=== PATIENT | female | born 1930 | race Caucasian/White ===

== ENCOUNTER → 2016-10-16 | Outpatient (REF) | payer MEDICARE, OTHER ==
[~2016-10-16] MED LIST: /ADVA50050 INH; /ESOM40CA PO; ANTI25TA OR; ASPI81TA3 OR; BABY81CH PO; BISO10TA2 PO; CALCIUM LACTATE PO; CIPR500T19 OR; CIPR500T4 PO; COZA50TA18 PO; DETR2CAP PO; DETR4CAP PO; FLUTICASONE FUROATE; HYDR-727 PO; HYDR25TA6 PO; LEVALBUTEROL INH; MUCINEX PO; MULTIVIT; NASONEX; PREDPOW10; SING10TA31 PO; TYLE500T53 PO; VERAMYST; VIT D 2000 PO; VITA500T PO; VITAMIN B COMPLE1 PO; XOPE1.252 INH; XOPEAER INH; ZANT150T OR; ZEBE5TAB PO; ZETI10TA OR; ZETI10TA PO; ZOLO50TA PO
== END ==
LOC: M LAB REF 16:30
PROVIDERS: ATTEND Internal Medicine
DX: E21.0 Primary hyperparathyroidism (principal)

== ENCOUNTER → 2017-09-03 | Outpatient (CLI) | payer MEDICARE, OTHER ==
--- NOTE | 2017-09-03 16:23 | REP ---
Chest two views HISTORY: Asthma Comparison: 06/25/2011 The lungs are clear. The cardiac silhouette is enlarged. The pulmonary vasculature is normal in appearance. Degenerative change is present in the thoracic spine. IMPRESSION: Cardiomegaly. Signed by Frankie Banuelos MD 09/03/2017 04:15 P
== END ==
LOC: M SMT 16:03
PROVIDERS: ATTEND Internal Medicine Pulmonary Disease
DX: J45.909 Unspecified asthma, uncomplicated (principal)

== ENCOUNTER 2019-11-09 18:42 | Inpatient (IN) | payer MEDICARE, OTHER ==
[~2019-11-09] VITALS: Ht 162.6 cm; Wt 72.0 kg
[~2019-11-09 18:42] MED LIST changes: -/ADVA50050 INH; -/ESOM40CA PO; +ADVA1AER2 INH; +LANS30CA93; +NEXI1CAP3 PO; +RANI150T14; +SERT-138
[2019-11-09] MEDS ORDERED: MIRT1TAB (19:31)
[2019-11-09] MEDS ORDERED: BREO1INH (19:31)
[2019-11-09] MEDS ORDERED: BISO5TAB14 (19:31)
[2019-11-09] MEDS ORDERED: HYDR12.55 PO (19:31)
[2019-11-09] MEDS ORDERED: DIPH2.5T15 (19:31)
[2019-11-09] MEDS ORDERED: MIRT1TAB16 PO (19:31)
[2019-11-09] MEDS ORDERED: MONT10TA4 (19:31)
[2019-11-09] MEDS ORDERED: BUDE3CAP (19:31)
[2019-11-09] MEDS ORDERED: LOSA50TA88 (19:31)
[2019-11-09] MEDS ORDERED: IPRATROPIUM 0.5MG/ALBUTEROL 2.5MG INH SOL UD 3ML (DUONEB)(J7620) NEB ONE (21:00)
[2019-11-09] MEDS ORDERED: LOMOTIL 2.5MG/0.025MG TABLET PO SCH (21:00)
[2019-11-09 21:04] LABS: BASO % 0.3 % (0.0-1.0); EOS # 0.1 10^3/uL (0.0-0.5); EOS % 1.4 % (0.0-3.0); HEMATOCRIT 34.3 % (36.0-47.0); LYMPH # 0.6 10^3/uL (1.5-5.0); LYMPH % 9.7 % (24.0-44.0); MEAN CORPUSCULAR HEMOGLOBIN 29.3 pg (27.0-33.0); MEAN CORPUSCULAR HGB CONC 32.1 g/dl (32.0-36.5); MEAN CORPUSCULAR VOLUME 91.5 fl (80.0-96.0); MONO # 0.6 10^3/uL (0.0-0.8); MONO % 10.2 % (0.0-5.0); NEUTROPHILS # 4.5 10^3/uL (1.5-8.5); NEUTROPHILS % 78.1 % (36.0-66.0); PLATELET COUNT, AUTOMATED 197 10^3/uL (150-450); RED BLOOD COUNT 3.75 10^6/uL (4.00-5.40); WHITE BLOOD COUNT 5.8 10^3/uL (4.0-10.0)
[2019-11-09 21:10] LABS: BLOOD UREA NITROGEN 12 MG/DL (7-18); CALCIUM LEVEL 9.8 MG/DL (8.8-10.2); CARBON DIOXIDE LEVEL 28 MEQ/L (21-32); CHLORIDE LEVEL 107 MEQ/L (98-107); CREATININE FOR GFR 0.77 MG/DL (0.55-1.30); GLOMERULAR FILTRATION RATE > 60.0 (>32); GLUCOSE, FASTING 128 MG/DL (70-100); NT-PRO BNP 1615 PG/ML (<450); POTASSIUM SERUM 3.3 MEQ/L (3.5-5.1); SODIUM LEVEL 142 MEQ/L (136-145)
[2019-11-09 21:20] LABS: ABG BASE EXCESS 2.3 (-2.0-2.0); ABG HCO3 25.9 MEQ/L (22.0-26.0); ABG O2 SATURATION 96.3 % (95.0-99.0); ABG PARTIAL PRESSURE CO2 36.6 mmHg (35.0-45.0); ABG PARTIAL PRESSURE O2 78.3 mmHg (75.0-100.0); ABG STANDARD HCO3 26.5 MEQ/L (22.0-26.0); ABG pH (ARTERIAL) 7.467 UNITS (7.350-7.450)
[2019-11-09 21:51] LABS: APPEARANCE, URINE CLOUDY (CLEAR); BACTERIA, URINE AUTO 1+ (NEGATIVE); BILIRUBIN, URINE AUTO NEGATIVE (NEGATIVE); BLOOD, URINE BLOOD 2+ (NEGATIVE); COLOR, URINE YELLOW (YELLOW); GLUCOSE, URINE (UA) AUTO NEGATIVE (NEGATIVE); KETONE, URINE AUTO NEGATIVE (NEGATIVE); LEUKOCYTE ESTERASE, URINE AUTO 3+ (NEGATIVE); MUCUS, URINE SMALL (NEGATIVE); NITRITE, URINE AUTO NEGATIVE (NEGATIVE); PROTEIN, URINE AUTO NEGATIVE (NEGATIVE); RBC, URINE AUTO 14 /HPF (0-3); SPECIFIC GRAVITY URINE AUTO 1.008 (1.002-1.035); SQUAMOUS EPITHELIAL CELL UR AU 2 /HPF (0-6); UROBILINOGEN, URINE AUTO 0.2 mg/dL (0.0-2.0); WBC, URINE AUTO TNTC /HPF (0-3)
[2019-11-09 22:16] LABS: INFLUENZA A AMPLIFICATION NEGATIVE (NEGATIVE); INFLUENZA B AMPLIFICATION NEGATIVE (NEGATIVE)
[2019-11-09] MEDS ORDERED: POTASSIUM CHLORIDE 10 MEQ SR TABLET PO ONE (23:15)
[2019-11-09] MEDS ORDERED: cefTRIAXone SOD 1 GM in D5W MINI-BAG PLUS 50 ML IV ONE (23:15)
[2019-11-09] MEDS ORDERED: FUROSEMIDE 40 MG/4 ML VIAL (J1940) IV ONE (23:15)
[2019-11-10] MEDS ORDERED: BREO1INH INH (00:18)
[2019-11-10] MEDS ORDERED: LOMO2.5T PO (00:18)
[2019-11-10] MEDS ORDERED: LOSA50TA88 PO (00:18)
[2019-11-10] MEDS ORDERED: ASPI-161 PO (00:18)
[2019-11-10] MEDS ORDERED: LEVA1.2525 INH (00:18)
[2019-11-10] MEDS ORDERED: SERT-138 PO (00:18)
[2019-11-10] MEDS ORDERED: BUDE3CAP PO (00:18)
[2019-11-10] MEDS ORDERED: HYDR12.55 PO (00:18)
[2019-11-10] MEDS ORDERED: LANS30CA PO (00:18)
[2019-11-10] MEDS ORDERED: VITATAB73 PO (00:18)
[2019-11-10] MEDS ORDERED: ASCO500T PO (00:18)
[2019-11-10] MEDS ORDERED: D32000TA PO (00:18)
[2019-11-10] MEDS ORDERED: REME15TA PO (00:18)
[2019-11-10] MEDS ORDERED: OYST1TAB PO (00:18)
[2019-11-10] MEDS ORDERED: META28.32 PO (00:18)
[2019-11-10] MEDS ORDERED: BISO5TAB14 PO (00:18)
[2019-11-10] MEDS ORDERED: VITMTA PO (00:18)
[2019-11-10] MEDS ORDERED: MONT10TA4 PO (00:18)
[2019-11-10] MEDS ORDERED: LEVALBUTEROL 1.25 MG/0.5 ML CONCENTRATE NEB INH PRN (00:30)
--- NOTE | 2019-11-10 00:42 | HPEPDOC ---
General Date of Admission Nov 09, 2019 at 23:20 Date of Service: Nov 09, 2019 Primary Care Physician: Jr Tovar Collins Attending Physician: MERT SAAB MD Chief Complaint The patient is a 89-year-old female admitted with a reason for visit of Dyspnea. Source: Patient Exam Limitations: No limitations Timing/Duration: 4-6 hours Severity: Moderate History of Present Illness Maegan is an 89-year-old female who presented to the emergency department complaining of sudden onset generalized weakness and shortness of breath. She says that she had been feeling weak for several days and this afternoon felt short of breath after walking up the second flight of stairs at her house. She went downstairs, and sat down to eat a bowl of hot soup, when she started fee ling shaky. She says she felt like she was going to pass out, she felt nervous, and felt that her heart was racing. She continues to feel quite weak, and does not think that she is strong enough to go home. 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 The last time she saw her primary care provider was on 10/19/2019, when he increased her Lomotil for diarrhea to 4 times daily. Despite this, she continues to have 2-3 bowel movements daily. She finds that taking Metamucil will help keep her bowel movements formed. She says that she has lost about 15 pounds over the last 6 months, unintentionally, as her diarrhea is quite severe. She denies any leg swelling, and chronically sleeps propped up at night with 3 pillows secondary to severe gastric reflux from an hiatal hernia. Home Medications Scheduled Ascorbic Acid (Ascorbic Acid) 500 Mg Tablet, 500 MG PO BID, (Reported) Aspirin (Aspirin EC) 81 Mg Tablet.dr, 81 MG PO DAILY, (Reported) Bisoprolol Fumarate (Bisoprolol Fumarate) 5 Mg Tablet, 5 MG PO QHS, (Reported) Budesonide (Budesonide EC) 3 Mg Capdr...er, 3 MG PO DAILY, (Reported) Calcium Carbonate (Calcium) 500 Mg Tablet, 1,000 MG PO BID, (Reported) Cholecalciferol (Vitamin D3) (Vitamin D3) 2,000 Unit Tablet, 2,000 UNIT PO DAILY, (Reported) Diphenoxylate HCl/Atropine (Lomotil 2.5-0.025 mg Tablet) 1 Each Tablet, 1 TAB PO QID, (Reported) Fluticasone/Vilanterol (Breo Ellipta 100-25 Mcg INH) 1 Each Blst.w.dev, 1 PUFF INH DAILY, (Reported) Hydrochlorothiazide (Hydrochlorothiazide) 12.5 Mg Tablet, 12.5 MG PO DAILY, (Reported) Lansoprazole (Lansoprazole) 30 Mg Capsule.dr, 30 MG PO BID, (Reported) Losartan Potassium (Losartan Potassium) 50 Mg Tablet, 50 MG PO DAILY, (Reported) Mirtazapine (Remeron) 15 Mg Tablet, 7.5 MG PO QHS, (Reported) Montelukast Sodium (Montelukast Sodium) 10 Mg Tablet, 10 MG PO QHS, (Reported) Multivitamins (Thera M Plus Tablet) 1 Each Tablet, 1 TAB PO DAILY, (Reported) Psyllium Husk (with Sugar) (Metamucil Powder) 575 Gm Powder, 1 PKT PO BID, (Reported) Sertraline HCl (Sertraline HCl) 100 Mg Tablet, 100 MG PO QHS, (Reported) Vitamin B Complex (Vitamin B Complex) 1 Each Tablet, 1 TAB PO BID, (Reported) Scheduled PRN Levalbuterol HCl (Levalbuterol HCl) 1.25 Mg/3 Ml Vial.neb, 1.25 MG INH QID PRN for SHORTNESS OF BREATH, (Reported) Allergies Coded Allergies: No Known Allergies (Verified , 11/09/19) Past Medical History Medical History Asthma Hypertension COPD GERD secondary to hiatal hernia Depression/anxiety Chronic vertigo Diet controlled diabetes Hypothyroidism Uterine cancer status post hysterectomy and radiation History of left pleural effusion and pericardial effusion related to coxsackie virus 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 Surgical History Tonsillectomy Vaginal hysterectomy in 1996 with subsequent radiation therapy for uterine cancer (still has fallopian tubes and ovaries) Left knee arthroscopically Cholecystectomy Cataract surgery and retinal detachment surgery Family History Significant Family History: No pertinent family hx Social History * Smoker: Denies Alcohol: Denies Drugs: denies Recent Travel/Sick Contacts: Denies: Recent travel A-FIB/[facility] A-FIB History Current/History of A-Fib/PAF?: No Review of Systems Constitutional: Denies: Chills, Fever, Night Sweats, Weakness Eyes: Denies: Vision change, Redness ENT: Denies: Head Aches, Dysphagia, Sinus Congestion, Post Nasal Drip, Sore Throat, Epistaxis Skin: Reports: Bruising (from aspirin); Denies: Rash, Lesions, Jaundice Pulmonary: Reports: Dyspnea; Denies: Cough, Pleuritic Chest Pain Cardiovascular: Denies: Chest Pain, Palpitations, Orthopnea, Paroxysmal Noc. Dyspnea, Edema Gastrointestinal: Reports: Diarrhea; Denies: Nausea, Vomiting, Abdominal Pain, Constipation Genitourinary: Denies: Dysuria, Frequency, Incontinence Hematologic: Reports: Bruising (from aspirin); Denies: Bleeding Excessively Endocrine: Denies: Polydipsia, Polyphagia, Polyuria Musculoskeletal: Denies: Neck Pain, Back Pain Neurological: Reports: Weakness; Denies: Numbness Psych: Reports: Anxiety Physical Examination General Exam: Positive: Alert, Cooperative, No Acute Distress Eye Exam: Positive: PERRLA (wears glasses) ENT Exam: Positive: Atraumatic, Mucous membr. moist/pink Neck Exam: Positive: Supple; Negative: JVD, thyromegaly Chest Exam: Positive: Clear to auscultation, Normal air movement Heart Exam: Positive: Rate Normal, Regular Rhythm, Normal S1, Normal S2; Negative: Gallops, Murmurs, Rubs Telemetry: Positive: No significant arrhythmia Abdomen Exam: Positive: BS Hyperactive Extremity Exam: Positive: Normal pulses; Negative: Clubbing, Cyanosis, Edema Skin Exam: Negative: Nl turgor and temperature (decreased turgor) Neuro Exam: Positive: Normal Speech, Strength at 5/5 X4 ext, Normal Tone, Sensation Intact Psych Exam: Positive: Mental status NL Vital Signs Vital Signs Date Time Temp Pulse Resp B/P (MAP) Pulse Ox O2 Delivery O2 Flow Rate FiO2 11/09/19 23:31 98.2 80 18 144/69 (94) 100 Nasal Cannula 1.0 11/09/19 19:18 93 Laboratory Data Labs 24H Laboratory Tests 2 11/09/19 19:45: Immature Granulocyte % (Auto) 0.3, Neutrophils (%) (Auto) 78.1H, Lymphocytes (%) (Auto) 9.7L, Monocytes (%) (Auto) 10.2H, Eosinophils (%) (Auto) 1.4, Basophils (%) (Auto) 0.3, Neutrophils # (Auto) 4.5, Lymphocytes # (Auto) 0.6L, Monocytes # (Auto) 0.6, Eosinophils # (Auto) 0.1, Basophils # (Auto) 0.0, Nucleated Red Blood Cells % (auto) 0.0, Anion Gap 7L, Glomerular Filtration Rate > 60.0, Calcium Level 9.8, YW-Aok-E-Type Natriuretic Peptide 1615H 11/09/19 21:04: Blood Gas Bicarbonate Standard 26.5H, Arterial Blood pH 7.467H, Arterial Blood Partial Pressure CO2 36.6, Arterial Blood Partial Pressure O2 78.3, Arterial Blood Total CO2 27.0, Arterial Blood HCO3 25.9, Arterial Blood Base Excess 2.3H, Arterial Blood Oxygen Saturation 96.3 11/09/19 21:29: Lactic Acid Level 0.9, Influenza Type A (RT-PCR) NEGATIVE, Influenza Type B (RT- PCR) NEGATIVE 11/09/19 21:30: Urine Color YELLOW, Urine Appearance CLOUDYH, Urine pH 6.0, Urine Specific [place] 1.008, Urine Protein NEGATIVE, Urine Glucose (Auto)(UA) NEGATIVE, Urine Ketones (Auto) NEGATIVE, Urine Blood 2+H, Urine Nitrite NEGATIVE, Urine Bilirubin NEGATIVE, Urine Urobilinogen 0.2, Urine Leukocyte Esterase (Auto) 3+H, Urine WBC (Auto) TNTCH, Urine RBC (Auto) 14H, Urine Hyaline Casts (Auto) 2, Urine Bacteria (Auto) 1+H, Urine Squamous Epithelial Cells 2, Urine Mucus (Auto) SMALL, Urine Sperm (Auto) CBC/BMP Laboratory Tests 11/09/19 19:45 Microbiology Microbiology 11/09/19 Blood Culture, Received Pending Assessment/Plan 1. Dehydration secondary to chronic diarrhea. IVF at 100 cc/hr. 2. Hypokalemia secondary to chronic diarrhea. Replete potassium, recheck in the morning. 3. Weakness, most likely secondary to chronic diarrhea. IV fluids and potassium repletion as above. Physical therapy evaluation. 4. Elevated proBNP. Echocardiogram to rule out heart failure. Clinically no signs of heart failure on exam. 5. Hypertension, continue bisoprolol, hydrochlorothiazide, and losartan 6. Anxiety/depression. Continue home mirtazapine and Zoloft 7. Asthma/COPD. Continue with levalbuterol nebulizers as needed, home budesonide, and Singulair. Is on Breo Ellipta at home 8. Chronic diarrhea. Continue home Lomotil, high-fiber diet 9. DVT prophylaxis. 10. Patient wishes to be DNR/DNI Disposition: Inpatient as we expect more than 2 nights Plan / VTE VTE Prophylaxis Ordered?: Yes (lovenox) Plan Therapy: PT Advanced Directives: Do Not Resuscitate (DNR), Do Not Intubate (DNI) GME ATTESTATION GME ATTESTATION My faculty preceptor for this patient encounter was physically present during the encounter and was fully available. All aspects of the patient interview, examination, medical decision making process, and medical care plan development were reviewed and approved by the faculty preceptor. The faculty preceptor is aware and concurs with the plan as stated in the body of this note and will attest to such by his/her cosignature. ATTENDING NOTE I examined Ms. Pryor on November 10 at 1205 AM This is an 89 yr old F w a PMH Of HTN, Asthma, Chronic O2 dep and hx of uterine cancer who developed chronic diarrhea after radation tx who presented with the cheif c/o of feeling weak, dizzy and short of breath. 1. Dyspnea of unclear cause Per pt symptoms not typical of her acute asthma but improved a bit after she received both lasix and nebs. Her BNP was elevated and her xrc showed congestion. Her previous Echo didn't show evidence of CHF Her PERC rule score = 0 which r/o PE Her ABG was unremarkable. 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
[2019-11-10] MEDS: LOMOTIL 2.5MG/0.025MG TABLET PO SCH ×5 (00:45→20:55)
[2019-11-10] MEDS ORDERED: KCL 20MEQ in NS 1000ML 1,000 ML IV SCH (00:45)
[2019-11-10 01:01] VITALS: BP 146/87
[2019-11-10 01:08] LABS: TROPONIN I < 0.02 NG/ML (< 0.10)
[2019-11-10] MEDS: METAMUCIL (PSYLLIUM) PACKET PO SCH ×3 (01:28→20:55)
[2019-11-10] MEDS: bisoproloL fumarate 5 MG TAB PO SCH ×2 (01:29→20:55)
[2019-11-10] MEDS: ASCORBIC ACID 500 MG TAB PO SCH ×3 (01:29→20:55)
[2019-11-10] MEDS: OYSTER SHELL CALCIUM 500 MG TAB PO SCH ×3 (01:30→20:55)
[2019-11-10] MEDS: SERTRALINE 100 MG TAB PO SCH ×2 (01:30→20:55)
[2019-11-10] MEDS: MONTELUKAST 10 MG TAB PO SCH ×2 (01:30→20:55)
[2019-11-10] MEDS: PANTOPRAZOLE 40MG TAB (PROTONIX) PO SCH ×3 (01:30→17:03)
[2019-11-10] MEDS: MIRTAZAPINE 7.5MG PER 1/2 TABLET PO SCH ×2 (02:13→20:55)
[2019-11-10 02:52] LABS: MAGNESIUM LEVEL 1.6 MG/DL (1.8-2.4); TROPONIN I < 0.02 NG/ML (< 0.10)
[2019-11-10] MEDS ORDERED: MAGNESIUM OXIDE 400 MG TAB (MAG-OX) PO ONE ×2 (03:15→05:15)
[2019-11-10 06:00] VITALS: BP 115/74
--- NOTE | 2019-11-10 07:51 | REP ---
Clinical: Dyspnea. Technique: PA and cross-table lateral. Findings: Mediastinum and cardiac silhouette are within normal limits and stable. Lung kyle demonstrate diffuse chronic interstitial changes. Mild bibasilar atelectasis (left greater than right) cannot be excluded. No obvious effusion. No pneumothorax. Skeletal structures are intact. Impression: Chronic changes with superimposed basilar atelectasis suspected. Electronically Signed by Everton Issa MD 11/10/2019 07:43 A
--- NOTE | 2019-11-10 11:17 | IPNPDOC ---
Text Note Date of Service The patient was seen on 11/10/19. NOTE Subjective: Patient is an 89-year-old female presented to the hospital last e vening with weakness. 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 Patient received radiation treatment for uterine cancer after hysterectomy. Patient says last night she was having worsening of her diarrhea and was having difficulty standing. She tried to walk down stairs and felt very weak so she called an ambulance to bring her into the hospital. Patient was also experiencing shortness of breath at that time. Patient received 1 nebulizer treatment in the ambulance and said this made her feel better. Patient received 1 dose of Lasix in the emergency room which also made her feel better. This morning, patient says she is feeling okay but still feels very weak. She has not had any diarrhea since being in the hospital. Overnight, she did not get much sleep as she was moving from the emergency room to the hospital floor so she feels very tired this morning. Patient does not have any other complaints. Review of systems General: Patient denies fevers Cardiovascular: Patient denies chest pain Respiratory: Patient denies shortness of breath, cough GI: Patient denies abdominal pain, nausea, vomiting, diarrhea Extremities: Patient denies swelling or pain in extremities Objective: Vitals: (see below) General: Alert and oriented patient who was sitting in bed when I walked him. Patient was in no acute distress. HEENT: Normocephalic, atraumatic, moist mucous membranes. Neck: Jugular venous distention 3-4 cm above the sternal angle Cardiac: Regular rate and rhythm, no murmurs, normal S1, normal S2 Pulm: Fine crackles in the bases bilaterally. Abd: Nondistended, nontender to palpation, normal bowel sounds Ext: Trace pitting edema bilaterally in the lower extremities Labs (see below) Images: A chest x-ray performed on 11/09/2019 was reported as chronic changes with superimposed basilar atelectasis suspected. Assessment: Patient is an 89-year-old female who presented with weakness which is thought to be secondary to dehydration secondary to diarrhea. Plan 1. Dehydration secondary to chronic diarrhea. Patient had been giving IV fluids at 100 mL/h. Patient received about 600 mL of fluid before this was stopped secondary to fluid overload. We will continue to see how the patient is doing throughout the day. If the patient becomes more short of breath throughout the day, 1 dose of IV Lasix will be given. 2. Hypokalemia, secondary to chronic diarrhea. Patient had repletion of her potassium. She is due for a basic metabolic profile at noon. 3. Weakness, most likely secondary to chronic diarrhea. Patient had fluid resuscitation and she'll be working with physical therapy. 4. Elevated proBNP. This is been repeated at noon as well, echocardiogram has been ordered and is pending. - s/p Furosemide 40 IV in the ER; current fluid balanced recorded at + 1010 cc 5. Hypertension. Continue bisoprolol hydrochlorothiazide and losartan. 6. Anxiety/depression. Continue with home medications. 7. Asthma/COPD. Continue with Levalbuterol nebulizers as needed, home budesonide, and Singulair. 8. Chronic diarrhea. Continue home Lomotil and Metamucil DVT prophy: Lovenox Dispo: Pending clinical improvement of the patient's weakness and physical therapy clearance. VS,Fishbone, I+O VS, Fishbone, I+O Laboratory Tests 11/09/19 19:45 Vital Signs Date Time Temp Pulse Resp B/P (MAP) Pulse Ox O2 Delivery O2 Flow Rate FiO2 11/10/19 06:00 98.6 72 20 115/74 (88) 94 Room Air 11/09/19 23:31 1.0 11/09/19 19:18 93 I&O- Last 24 Hours up to 6 AM 11/10/19 05:59 Intake Total 400 ml Output Total 300 ml Balance 100 ml GME ATTESTATION GME ATTESTATION My faculty preceptor for this patient encounter was physically present during the encounter and was fully available. All aspects of the patient interview, examination, medical decision making process, and medical care plan development were reviewed and approved by the faculty preceptor. The faculty preceptor is aware and concurs with the plan as stated in the body of this note and will attest to such by his/her cosignature. ATTENDING NOTE I, Reji Cody, have independently examined this patient and performed my own physical exam, as well as reviewed the documentation and edited where necessary. I have discussed in detail with the resident / student the findings and plan of treatment as documented by the resident / student and edited their note. I agree with their findings and treatment plan and have edited their documentation. I will continue to follow the patient during this hospital stay. GRAYSON PURI DO Nov 10, 2019 11:17 REJI CODY MD Nov 10, 2019 14:45
[2019-11-10] MEDS: ASPIRIN 81 MG ENTERIC TAB PO SCH (11:23)
[2019-11-10] MEDS: MULTIVITAMINS/MINERALS THERAP 1 TAB PO SCH (11:23)
[2019-11-10] MEDS: BUDESONIDE EC 3 MG CAP (ENTOCORT EC) PO SCH (11:23)
[2019-11-10] MEDS: VITAMIN D 1,000 INTERNATIONAL UNITS TABLET PO SCH (11:23)
[2019-11-10] MEDS: hydroCHLOROthiazide 12.5 MG CAPSULE PO SCH (11:23)
[2019-11-10] MEDS: ENOXAPARIN 30 MG/0.3 ML SYR (J1650) SC SCH (11:24)
[2019-11-10] MEDS: LOSARTAN 50 MG TAB PO SCH (11:24)
[2019-11-10 12:33] LABS: HEMATOCRIT 36.7 % (36.0-47.0); HEMOGLOBIN 11.4 g/dl (12.0-15.5); MEAN CORPUSCULAR HEMOGLOBIN 28.6 pg (27.0-33.0); MEAN CORPUSCULAR HGB CONC 31.1 g/dl (32.0-36.5); MEAN CORPUSCULAR VOLUME 92.2 fl (80.0-96.0); PLATELET COUNT, AUTOMATED 198 10^3/uL (150-450); RED BLOOD COUNT 3.98 10^6/uL (4.00-5.40); WHITE BLOOD COUNT 6.4 10^3/uL (4.0-10.0)
[2019-11-10 12:59] LABS: ALBUMIN 3.4 GM/DL (3.2-5.2); ALT/SGPT 18 U/L (12-78); BILIRUBIN,TOTAL 0.5 MG/DL (0.2-1.0); BLOOD UREA NITROGEN 12 MG/DL (7-18); CARBON DIOXIDE LEVEL 28 MEQ/L (21-32); CHLORIDE LEVEL 106 MEQ/L (98-107); CREATININE FOR GFR 0.66 MG/DL (0.55-1.30); GLOMERULAR FILTRATION RATE > 60.0 (>32); GLUCOSE, FASTING 100 MG/DL (70-100); MAGNESIUM LEVEL 1.8 MG/DL (1.8-2.4); NT-PRO BNP 1585 PG/ML (<450); POTASSIUM SERUM 3.8 MEQ/L (3.5-5.1); SODIUM LEVEL 141 MEQ/L (136-145); TOTAL PROTEIN 6.1 GM/DL (6.4-8.2)
[2019-11-10] MEDS: LEVALBUTEROL 1.25 MG/0.5 ML CONCENTRATE NEB INH SCH (20:10)
[2019-11-10 22:00] VITALS: BP 100/69
[2019-11-11] MEDS ORDERED: HumuLIN R (REGULAR) INSULIN (NovoLIN R) **100U/ML** PER UNIT IV STA (01:37)
[2019-11-11] MEDS ORDERED: DEXTROSE 50% 50 ML SYRINGE IV STA (01:37)
[2019-11-11] MEDS ORDERED: CALCIUM GLUCONATE 1,000 MG in D5W MINI-BAG PLUS 100 ML IV ONE (01:45)
[2019-11-11 06:00] VITALS: BP 115/60
[2019-11-11 06:23] LABS: HEMATOCRIT 33.9 % (36.0-47.0); HEMOGLOBIN 10.8 g/dl (12.0-15.5); MEAN CORPUSCULAR HEMOGLOBIN 29.4 pg (27.0-33.0); MEAN CORPUSCULAR HGB CONC 31.9 g/dl (32.0-36.5); MEAN CORPUSCULAR VOLUME 92.4 fl (80.0-96.0); PLATELET COUNT, AUTOMATED 173 10^3/uL (150-450); RED BLOOD COUNT 3.67 10^6/uL (4.00-5.40)
[2019-11-11 06:50] LABS: BLOOD UREA NITROGEN 9 MG/DL (7-18); CALCIUM LEVEL 9.7 MG/DL (8.8-10.2); CARBON DIOXIDE LEVEL 29 MEQ/L (21-32); CHLORIDE LEVEL 105 MEQ/L (98-107); CREATININE FOR GFR 0.78 MG/DL (0.55-1.30); GLOMERULAR FILTRATION RATE > 60.0 (>32); GLUCOSE, FASTING 107 MG/DL (70-100); POTASSIUM SERUM 3.4 MEQ/L (3.5-5.1); SODIUM LEVEL 141 MEQ/L (136-145)
[2019-11-11] MEDS: LEVALBUTEROL 1.25 MG/0.5 ML CONCENTRATE NEB INH SCH ×2 (06:56→11:47)
[2019-11-11] MEDS: PANTOPRAZOLE 40MG TAB (PROTONIX) PO SCH (07:08)
[2019-11-11] MEDS ORDERED: POTASSIUM CHLORIDE 10 MEQ SR TABLET PO ONE (07:15)
[2019-11-11] MEDS: ASPIRIN 81 MG ENTERIC TAB PO SCH (08:25)
[2019-11-11] MEDS: BUDESONIDE EC 3 MG CAP (ENTOCORT EC) PO SCH (08:25)
[2019-11-11] MEDS: VITAMIN D 1,000 INTERNATIONAL UNITS TABLET PO SCH (08:25)
[2019-11-11] MEDS: OYSTER SHELL CALCIUM 500 MG TAB PO SCH (08:28)
[2019-11-11] MEDS: METAMUCIL (PSYLLIUM) PACKET PO SCH (08:28)
[2019-11-11] MEDS: MULTIVITAMINS/MINERALS THERAP 1 TAB PO SCH (08:28)
[2019-11-11] MEDS: ASCORBIC ACID 500 MG TAB PO SCH (08:28)
[2019-11-11] MEDS: LOMOTIL 2.5MG/0.025MG TABLET PO SCH ×2 (08:47→13:00)
[2019-11-11] MEDS: ENOXAPARIN 30 MG/0.3 ML SYR (J1650) SC SCH (08:47)
[2019-11-11 09:00] VITALS: BP 98/62
[2019-11-11] MEDS: LOSARTAN 50 MG TAB PO SCH (09:00)
[2019-11-11] MEDS: hydroCHLOROthiazide 12.5 MG CAPSULE PO SCH (09:00)
--- NOTE | 2019-11-11 10:45 | IPNPDOC ---
Text Note Date of Service The patient was seen on 11/11/19. NOTE Subjective: Patient is an 89-year-old female who presented to the hospital with weakness and chronic diarrhea that is worsening. Patient says that she did not have any episodes of diarrhea yesterday and had a normal bowel movement. Patient says she is feeling stronger today however, she still needs work with physical therapy. Patient is feeling well today. There was no acute events overnight. Review of systems General: Patient denies fevers Cardiovascular: Patient denies chest pain Respiratory: Patient denies shortness of breath, cough GI: Patient denies abdominal pain, nausea, vomiting, diarrhea Extremities: Patient denies swelling or pain in extremities Objective: Vitals: (see below) General: Alert and oriented elderly female who is sitting in the bed when I wa lked into the room. Patient was in no acute distress. HEENT: Normocephalic, atraumatic, moist mucous membranes. Neck: No lymphadenopathy or thyromegaly Cardiac: Regular rate and rhythm, no murmurs, normal S1, normal S2 Pulm: Clear to auscultation bilaterally. No wheezes, rhonchi, rales Abd: Nondistended, nontender to palpation, normal bowel sounds Ext: No edema bilateral lower extremities Labs (see below) Images: Imaging has been performed. Assessment: This is an 89-year-old female presented to the hospital with weakness which started be secondary to dehydration secondary to worsening of her chronic diarrhea. She is not had any diarrhea since being in the hospital and feels better. Plan 1. Dehydration secondary to chronic diarrhea. Patient's IV fluids were stopped yesterday. Patient is on strict intake and output and appears much more euvolemic today. Patient's been worked with physical therapy or will require at least 1-2 more days. Patient's chronic diarrhea has improved with Lomotil. 2. Hypokalemia, secondary to chronic diarrhea. Patient has had repletion of potassium. We will continue to monitor. 3. Weakness secondary to chronic diarrhea. Patient has been fluid resuscitated and is currently euvolemic. 4. Elevated pro BNP. This remains elevated. Patient received a dose of furosemide 40 mg IV in the emergency room. Patient is net +2210 mL. 5. Hypertension. Patient is on bisoprolol hydrochlorothiazide and losartan. Patient's blood pressure has been running on the low side so her hydrochlorothiazide has been discontinued. 6. Anxiety/depression. Continue with home medications. 7. Asthma/COPD. Continue with levalbuterol nebulizers as needed, home budesonide, and Singulair. 8. Chronic diarrhea. Continue with home Lomotil and Metamucil. DVT prophy: Lovenox Dispo: Patient passed physical therapy clearance today and will be discharged. See discharge summary dated 11/11/2019. VS,Fishbone, I+O VS, Fishbone, I+O Laboratory Tests 11/10/19 12:12 11/11/19 06:06 Vital Signs Date Time Temp Pulse Resp B/P (MAP) Pulse Ox O2 Delivery O2 Flow Rate FiO2 11/11/19 09:00 98/62 11/11/19 06:00 98.3 70 17 92 Room Air 11/09/19 23:31 1.0 11/09/19 19:18 93 I&O- Last 24 Hours up to 6 AM 11/11/19 06:00 Intake Total 2690 ml Output Total 800 ml Balance 1890 ml GRAYSON PURI DO Nov 11, 2019 10:45
--- NOTE | 2019-11-11 10:53 | ECHO ---
DATE OF PROCEDURE: 11/10/2019 HEIGHT: 64 inches. WEIGHT: 156 pounds. BODY SURFACE AREA: 1.77 meters squared. ROOM: Inpatient [address] [place] [address], room 4213. REFERRING PHYSICIAN: Dr. Kathryn Mon. INDICATION: Dyspnea. MEASUREMENTS: 2D Measurements: RV - 4.2 cm LV - 4.7 cm Septum - 1.4 cm Posterior wall - 1.4 cm Aortic root - 3.1 cm LA - 4.2 cm LVEF - 75 -80%. Doppler Measurements: AV - 1.75 meters per second LVOT - 1.12 meters per second LVOT diameter - 1.7 cm MV - E 104, A - 55, E/A ratio 1.9 Early mitral deceleration time - 180 milliseconds E prime medial 5, A prime medial - 6.5, E prime lateral - 10. Average E/E prim ration 13.9/PCWP - 19 mmHg PV - 0.75 meters per second Pulmonary artery acceleration time 80 milliseconds RVSP - 49-54 mmHg IVC - 2.1 cm COMMENTS: Normal sinus rhythm without intraventricular conduction disturbance. M-mode and two dimensional echocardiography was performed with pulsed, continuous wave, color flow and tissue Doppler studies. Moderate concentric left ventricular hypertrophy with hyperkinetic wall motion. Mildly dilated left atrium with grade 2 LV diastolic dysfunction and at least mildly elevated estimated mean left atrial pressure. Mildly dilated right heart chambers with normal wall motion and Doppler evidence of moderately severe pulmonary hypertension. Mildly dilated IVC with reduced respiratory collapse in keeping with elevated central venous pressures/right heart failure. Mild aortic valvular sclerosis without functional abnormality. Mild degenerative changes of the mitral valvular apparatus without in-flow tract obstruction but mild insufficiency. Normal appearing tricuspid valve with moderate insufficiency. No apparent intracardiac mass or pericardial effusion.
--- NOTE | 2019-11-11 13:25 | DS.PDOC ---
Discharge Summary General Date of Admission Nov 09, 2019 at 23:20 Date of Discharge 11/11/2019 Primary Care Physician: Jr Tovar Collins Attending Physician: REJI CODY MD Discharge Summary PROCEDURES PERFORMED DURING STAY: None. ADMITTING/DISCHARGE DIAGNOSES: 1. Dehydration secondary to chronic diarrhea 2. Hypokalemia, secondary to chronic diarrhea, resolved 3. This, secondary to dehydration secondary to chronic diarrhea, resolved 4. Elevated pro-BNP 5. Hypertension 6. Anxiety/depression 7. Asthma/COPD 8. Chronic diarrhea COMPLICATIONS/CHIEF COMPLAINT: Weakness HISTORY OF PRESENT ILLNESS/HOSPITAL COURSE: Patient is an 89-year-old female who presented to the emergency room on 11/09/2019 with a sudden complaint of generalized weakness and shortness of breath. 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 She's been having this diarrhea since the late . She reported that during the day on 11/09/2019, her diarrhea had worsened and she had 3-4 loose, watery bowel movements throughout the day. She says that she was walking up a flight of stairs at her house and began to feel short of breath. She went downstairs and sat down and eat a bowl of soup and started feeling very shaky. Patient felt like she was given a pass out, she felt very nervous, and her heart was racing. She continued to feel weak and decided to call an ambulance to go to the emergency room. In the ambulance, patient received a DuoNeb treatment which helped her shortness of breath. Patient was admitted into the hospital for dehydration. Patient was placed on IV fluids. When patient was seen the first morning, she appeared to start to show the signs of volume overload so IV fluids were stopped after about 600 mL. Patient felt stronger on her first day of hospitalization however, she did feel short of breath and weak while working with physical therapy. Patient was placed on a fluid restriction and on the patient's second day of hospitalization she felt much better. Patient was able to work with physical therapy and passed her physical therapy evaluation. Patient had an echocardiogram done in the full results will be below however, it did show grade 2 diastolic dysfunction. I had a discussion with the patient about what this means and how she should try to restrict her fluids to about 50 ounces per day. I did talk to the patient about daily weights as well as close follow-up with her primary care physician. The patient's chronic diarrhea makes this difficult as she may become dehydrated. I advised patient that if she feels like she is having more watery bowel movements and her normal, she should increase her fluid intake to try to manage this. Patient says she understands and at that time, she was deemed ready to be discharged on 11/11/2019. Patient was also having lower than normal blood pressures and her hydrochlorothiazide was stopped during her hospitalization. DISCHARGE MEDICATIONS: Please see below. ALLERGIES: Please see below. PHYSICAL EXAMINATION ON DISCHARGE: Vitals: (see below) General: No acute distress, laying comfortably in bed. HEENT: Moist mucous membranes. Neck: No JVD or lymphadenopathy Cardiac: RRR, No murmurs Pulm: Clear to auscultation b/l. No wheezing, rhonchi Abd: NT/ND + BS Ext: Trace edema in bilateral lower extremities LABORATORY DATA: Please see below. IMAGING: A chest x-ray performed on 11/09/2019 was reported to show chronic changes with superimposed basilar atelectasis suspected. An echocardiogram performed on 11/10/2019 was reported to show: Normal sinus rhythm without intraventricular conduction disturbance. M-mode and two dimensional echocardiography was performed with pulsed, continuous wave, color flow and tissue Doppler studies. Moderate concentric left ventricular hypertrophy with hyperkinetic wall motion. Mildly dilated left atrium with grade 2 LV diastolic dysfunction and at least mildly elevated estimated mean left atrial pressure. Mildly dilated right heart chambers with normal wall motion and Doppler evidence of moderately severe pulmonary hypertension. Mildly dilated IVC with reduced respiratory collapse in keeping with elevated central venous pressures/right heart failure. Mild aortic valvular sclerosis without functional abnormality. Mild degenerative changes of the mitral valvular apparatus without in-flow tract obstruction but mild insufficiency. Normal appearing tricuspid valve with moderate insufficiency. No apparent intracardiac mass or pericardial effusion. PROGNOSIS: Fair ACTIVITY: As tolerated. DIET: 2 g sodium, heart healthy diet DISCHARGE PLAN/DISPOSITION: Discharge home with services DISCHARGE INSTRUCTIONS: 1. Follow-up with primary care physician within the next 3-5 days. Discussed whether or not she should resume her hydrochlorothiazide as this was held upon discharge due to low blood pressures. 2. Restrict fluids to 50 ounces per day. 3. Weigh yourself daily and contact primary care physician if there is a greater than 3 pound increase in 24 hours. 4. 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 TIME SPENT ON DISCHARGE: Greater than 30 minutes. Vital Signs/I&Os Vital Signs Date Time Temp Pulse Resp B/P (MAP) Pulse Ox O2 Delivery O2 Flow Rate FiO2 11/11/19 09:00 98/62 11/11/19 06:00 98.3 70 17 92 Room Air 11/09/19 23:31 1.0 11/09/19 19:18 93 I&O- Last 24 Hours up to 6 AM 11/11/19 06:00 Intake Total 2690 ml Output Total 800 ml Balance 1890 ml Laboratory Data Labs 24H Laboratory Tests 2 11/11/19 06:06: Nucleated Red Blood Cells % (auto) 0.0, Anion Gap 7L, Glomerular Filtration Rate > 60.0, Calcium Level 9.7 CBC/BMP Laboratory Tests 11/11/19 06:06 Microbiology Microbiology 11/09/19 Blood Culture - Preliminary, Resulted No growth after 24 hours . All specim... Discharge Medications Scheduled Ascorbic Acid (Ascorbic Acid) 500 Mg Tablet, 500 MG PO BID, (Reported) Aspirin (Aspirin EC) 81 Mg Tablet.dr, 81 MG PO DAILY, (Reported) Bisoprolol Fumarate (Bisoprolol Fumarate) 5 Mg Tablet, 5 MG PO QHS, (Reported) Budesonide (Budesonide EC) 3 Mg Capdr...er, 3 MG PO DAILY, (Reported) Calcium Carbonate (Calcium) 500 Mg Tablet, 1,000 MG PO BID, (Reported) Cholecalciferol (Vitamin D3) (Vitamin D3) 2,000 Unit Tablet, 2,000 UNIT PO D AILY, (Reported) Diphenoxylate HCl/Atropine (Lomotil 2.5-0.025 mg Tablet) 1 Each Tablet, 1 TAB PO QID, (Reported) Fluticasone/Vilanterol (Breo Ellipta 100-25 Mcg INH) 1 Each Blst.w.dev, 1 PUFF INH DAILY, (Reported) Lansoprazole (Lansoprazole) 30 Mg Capsule.dr, 30 MG PO BID, (Reported) Losartan Potassium (Losartan Potassium) 50 Mg Tablet, 50 MG PO DAILY, (Reported) Mirtazapine (Remeron) 15 Mg Tablet, 7.5 MG PO QHS, (Reported) Montelukast Sodium (Montelukast Sodium) 10 Mg Tablet, 10 MG PO QHS, (Reported) Multivitamins (Thera M Plus Tablet) 1 Each Tablet, 1 TAB PO DAILY, (Reported) Psyllium Husk (with Sugar) (Metamucil Powder) 575 Gm Powder, 1 PKT PO BID, (Reported) Sertraline HCl (Sertraline HCl) 100 Mg Tablet, 100 MG PO QHS, (Reported) Vitamin B Complex (Vitamin B Complex) 1 Each Tablet, 1 TAB PO BID, (Reported) Scheduled PRN Levalbuterol HCl (Levalbuterol HCl) 1.25 Mg/3 Ml Vial.neb, 1.25 MG INH QID PRN for SHORTNESS OF BREATH, (Reported) Allergies Coded Allergies: No Known Allergies (Verified , 11/09/19) GME ATTESTATION GME ATTESTATION My faculty preceptor for this patient encounter was physically present during the encounter and was fully available. All aspects of the patient interview, examination, medical decision making process, and medical care plan development were reviewed and approved by the faculty preceptor. The faculty preceptor is aware and concurs with the plan as stated in the body of this note and will attest to such by his/her cosignature. ATTENDING NOTE I, Reji Cody, have independently examined this patient and performed my own physical exam, as well as reviewed the documentation and edited where necessary. I have discussed in detail with the resident / student the findings and plan of treatment as documented by the resident / student and edited their note. I agree with their findings and treatment plan and have edited their documentation. I will continue to follow the patient during this hospital stay. Time spent on discharge: - 35 minutes GRAYSON PURI DO Nov 11, 2019 13:25 REJI CODY MD Nov 11, 2019 14:33
[2019-11-11] MEDS ORDERED: PANTOPRAZOLE 40MG TAB (PROTONIX) PO SCH (17:30)
[2019-11-11] MEDS ORDERED: ENTER DRUG NAME HERE (PATIENT'S OWN MED) PO SCH (21:00)
== END 2019-11-11 14:56 | DRG 641 ==
LOC: M ED 18:42 → M ED INP 23:20 → ENRESERV 11-10 00:05 → M MSPAV 11-10 01:01
PROVIDERS: ADMIT Internal Medicine; ATTEND Internal Medicine
DX: E87.6 Hypokalemia (principal); E86.0 Dehydration; R19.7 Diarrhea, unspecified; I10 Essential (primary) hypertension; F41.9 Anxiety disorder, unspecified; F32.9 Major depressive disorder, single episode, unspecified; J45.909 Unspecified asthma, uncomplicated; Z79.82 Long term (current) use of aspirin; Z79.899 Other long term (current) drug therapy; E11.9 Type 2 diabetes mellitus without complications; Z90.710 Acquired absence of both cervix and uterus; Z85.42 Personal history of malignant neoplasm of other parts of uterus; Z85.828 Personal history of other malignant neoplasm of skin

== ENCOUNTER → 2019-11-19 | Outpatient (CLI) | payer MEDICARE, OTHER ==
[~2019-11-19] MED LIST changes: +ASCO500T PO; +ASPI-161 PO; +BISO5TAB14; +BISO5TAB14 PO; +BREO1INH; +BREO1INH INH; +BUDE3CAP; +BUDE3CAP PO; +D32000TA PO; +DIPH2.5T15; +HYDR12.55 PO; +ISOVUE-370 76% 100ML VIAL (Q9967) As Ordered ONE; +LANS30CA PO; +LEVA1.2525 INH; +LOMO2.5T PO; +LOSA50TA88; +LOSA50TA88 PO; +META28.32 PO; +MIRT1TAB; +MIRT1TAB16 PO; +MONT10TA4; +MONT10TA4 PO; +OYST1TAB PO; +REME15TA PO; +SERT-138 PO; +VITATAB73 PO; +VITMTA PO
[2019-11-19 15:23] LABS: BLOOD UREA NITROGEN 20 MG/DL (7-18); CALCIUM LEVEL 9.9 MG/DL (8.8-10.2); CARBON DIOXIDE LEVEL 29 MEQ/L (21-32); CHLORIDE LEVEL 109 MEQ/L (98-107); CREATININE FOR GFR 0.66 MG/DL (0.55-1.30); GLOMERULAR FILTRATION RATE > 60.0 (>32); GLUCOSE, FASTING 94 MG/DL (70-100); SODIUM LEVEL 142 MEQ/L (136-145)
--- NOTE | 2019-11-19 16:19 | REP ---
Clinical: Hydronephrosis. Technique: Axial precontrast, contrast enhanced, and delayed images of the abdomen and pelvis using 100 ml Isovue 370 intravenous contrast material with coronal and sagittal re-formations. Findings: The left kidney demonstrates mild cortical thinning and mild hydroureteronephrosis extending to the bladder without evidence for obstructing calculus or ureteral stenosis/occlusion. The right kidney/ureter appears normal. There is no evidence for nephroureterolithiasis, renal cystic or mass lesion. The kidneys demonstrate relatively symmetric parenchymal enhancement. Delayed images demonstrate excretion to the bilateral collecting system but incomplete contrast column of the left ureter without obvious pointer focal cause for obstruction. Liver demonstrates subcentimeter cyst in the left lobe. Mild splenomegaly cannot be excluded. The pancreas is normal. There is evidence of prior cholecystectomy with compensatory biliary ductal dilatation. A hiatal hernia is identified at the gastroesophageal junction. Colonic and sigmoid diverticulosis noted without acute diverticulitis. No evidence for bowel obstruction or acute inflammatory process noted. Normal terminal ileum and appendix identified in the right lower quadrant. Pelvis demonstrates normal bladder and evidence for prior hysterectomy. No ascites. No free air. No obvious adenopathy. Abdominal aorta without aneurysm or dissection. Musculoskeletal structures demonstrate age-related changes. Lung bases demonstrate chronic-appearing changes. Impression: 1. Changes related to the left kidney including cortical thinning/scarring and mild hydroureteronephrosis without obvious obstructing cause may reflect chronic changes related to prior obstruction. Correlation with bladder ultrasound to document bilateral ureteral jets may be warranted. 2. Mild splenomegaly is suggested without focal lesion. 3. Diverticulosis without acute diverticulitis. Electronically Signed by Everton Issa MD 11/19/2019 04:10 P
== END ==
LOC: M RAD 14:23
PROVIDERS: ATTEND Nurse Practitioner Family
DX: N13.30 Unspecified hydronephrosis (principal); K57.90 Diverticulosis of intestine, part unspecified, without perforation or abscess without bleeding
CPT/HCPCS: 36415; 74178; 80048; G0463; Q9967

== ENCOUNTER → 2020-12-22 | Outpatient (REF) | payer MEDICARE, OTHER ==
[~2020-12-22] MED LIST changes: -ISOVUE-370 76% 100ML VIAL (Q9967) As Ordered ONE; +MIRT-62 PO; +MONT10TA10; +MONT10TA10 PO; -MONT10TA4; -MONT10TA4 PO; -REME15TA PO
== END ==
LOC: M LAB REF 16:14
PROVIDERS: ATTEND Internal Medicine
DX: N39.0 Urinary tract infection, site not specified (principal)

== ENCOUNTER 2021-09-05 13:47 | Inpatient (IN) | payer MEDICARE, OTHER ==
[~2021-09-05] VITALS: Ht 162.6 cm; Wt 66.0 kg
[~2021-09-05 13:47] MED LIST changes: +LOSA50TA28; +LOSA50TA28 PO; -LOSA50TA88; -LOSA50TA88 PO; -MONT10TA10; -MONT10TA10 PO; +MONT10TA97; +MONT10TA97 PO
[2021-09-05 14:40] LABS: BASO % 0.2 % (0.0-1.0); EOS # 0.1 10^3/uL (0.0-0.5); EOS % 1.5 % (0.0-3.0); HEMATOCRIT 36.7 % (36.0-47.0); HEMOGLOBIN 11.6 g/dl (12.0-15.5); LYMPH # 0.5 10^3/uL (1.5-5.0); LYMPH % 8.8 % (24.0-44.0); MEAN CORPUSCULAR HEMOGLOBIN 29.8 pg (27.0-33.0); MEAN CORPUSCULAR HGB CONC 31.6 g/dl (32.0-36.5); MEAN CORPUSCULAR VOLUME 94.3 fl (80.0-96.0); MONO # 0.5 10^3/uL (0.0-0.8); MONO % 9.8 % (2.0-8.0); NEUTROPHILS # 4.1 10^3/uL (1.5-8.5); NEUTROPHILS % 79.3 % (36.0-66.0); PLATELET COUNT, AUTOMATED 177 10^3/uL (150-450); RED BLOOD COUNT 3.89 10^6/uL (4.00-5.40); WHITE BLOOD COUNT 5.2 10^3/uL (4.0-10.0)
[2021-09-05 15:09] LABS: ALBUMIN 3.2 GM/DL (3.2-5.2); ALT/SGPT 26 U/L (12-78); BILIRUBIN,DIRECT 0.1 MG/DL (0.0-0.2); BILIRUBIN,TOTAL 0.3 MG/DL (0.2-1.0); BLOOD UREA NITROGEN 14 MG/DL (7-18); CALCIUM LEVEL 9.8 MG/DL (8.8-10.2); CARBON DIOXIDE LEVEL 26 MEQ/L (21-32); CHLORIDE LEVEL 107 MEQ/L (98-107); CREATININE FOR GFR 0.85 MG/DL (0.55-1.30); GLOMERULAR FILTRATION RATE > 60.0 (>32); GLUCOSE, FASTING 135 MG/DL (70-100); NT-PRO BNP 2011 PG/ML (<450); POTASSIUM SERUM 4.2 MEQ/L (3.5-5.1); SODIUM LEVEL 139 MEQ/L (136-145); TOTAL PROTEIN 6.3 GM/DL (6.4-8.2)
[2021-09-05] MEDS ORDERED: FUROSEMIDE 40MG/4ML VIAL (J1940) IV ONE (15:20)
[2021-09-05 20:00] VITALS: BP 103/71
[2021-09-05] MEDS ORDERED: META28PO PO (21:50)
[2021-09-05] MEDS ORDERED: MIRT1TAB PO (21:50)
[2021-09-05] MEDS ORDERED: D200CAP PO (21:50)
[2021-09-05] MEDS ORDERED: ZOLO100T PO (21:50)
[2021-09-05] MEDS ORDERED: CALC-211 PO (21:50)
[2021-09-05] MEDS ORDERED: LEVAINH INH (21:50)
[2021-09-05] MEDS ORDERED: LOPE2TAB12 PO (21:50)
[2021-09-05] MEDS ORDERED: HYDR12.55 PO (21:50)
[2021-09-05] MEDS ORDERED: HOME MED LIST COMPLETE! XX SCH (21:55)
[2021-09-05 23:23] VITALS: BP 130/67
[2021-09-05] MEDS: FUROSEMIDE 40MG/4ML VIAL (J1940) IV SCH (23:58)
[2021-09-06] MEDS ORDERED: ONDANSETRON 4 MG ORAL DISINTEGRATING TAB PO PRN (04:45)
[2021-09-06 05:16] VITALS: BP 139/69
[2021-09-06] MEDS ORDERED: LEVALBUTEROL HFA 45MCG/ACT 15 GM INHALER INH PRN (08:05)
[2021-09-06 08:24] LABS: HEMATOCRIT 39.2 % (36.0-47.0); HEMOGLOBIN 12.9 g/dl (12.0-15.5); MEAN CORPUSCULAR HEMOGLOBIN 30.9 pg (27.0-33.0); MEAN CORPUSCULAR HGB CONC 32.9 g/dl (32.0-36.5); PLATELET COUNT, AUTOMATED 203 10^3/uL (150-450); RED BLOOD COUNT 4.17 10^6/uL (4.00-5.40); WHITE BLOOD COUNT 7.2 10^3/uL (4.0-10.0)
[2021-09-06 08:51] LABS: ALBUMIN 3.2 GM/DL (3.2-5.2); ALT/SGPT 25 U/L (12-78); BILIRUBIN,TOTAL 0.7 MG/DL (0.2-1.0); BLOOD UREA NITROGEN 13 MG/DL (7-18); CALCIUM LEVEL 10.2 MG/DL (8.8-10.2); CARBON DIOXIDE LEVEL 29 MEQ/L (21-32); CHLORIDE LEVEL 105 MEQ/L (98-107); CREATININE FOR GFR 0.85 MG/DL (0.55-1.30); GLOMERULAR FILTRATION RATE > 60.0 (>32); GLUCOSE, FASTING 111 MG/DL (70-100); MAGNESIUM LEVEL 1.7 MG/DL (1.8-2.4); POTASSIUM SERUM 4.2 MEQ/L (3.5-5.1); SODIUM LEVEL 140 MEQ/L (136-145); TOTAL PROTEIN 6.7 GM/DL (6.4-8.2)
[2021-09-06] MEDS: ASPIRIN 81MG ENTERIC TABLET PO SCH (09:22)
[2021-09-06] MEDS: HEPARIN SOD (PORCINE) 5000UNITS/ML 1ML VIAL/SYRINGE SC SCH ×2 (09:23→20:48)
[2021-09-06] MEDS: LOSARTAN 50MG TABLET PO SCH (09:33)
[2021-09-06] MEDS: FUROSEMIDE 40MG/4ML VIAL (J1940) IV SCH ×2 (09:33→16:47)
[2021-09-06] MEDS: SYMBICORT 160/4.5MCG INHALER 6GM INH SCH ×2 (11:33→20:14)
[2021-09-06 18:23] VITALS: BP 118/68
[2021-09-06] MEDS: bisoproloL fumarate 5 MG TAB PO SCH (20:46)
[2021-09-06] MEDS: MONTELUKAST 10 MG TAB PO SCH (20:47)
[2021-09-06] MEDS: SERTRALINE 100 MG TAB PO SCH (20:47)
[2021-09-06] MEDS: MIRTAZAPINE 7.5MG PER 1/2 TABLET PO SCH (20:47)
[2021-09-06 22:00] VITALS: BP 110/70
[2021-09-07 06:00] VITALS: BP 139/70
[2021-09-07] MEDS: SYMBICORT 160/4.5MCG INHALER 6GM INH SCH ×2 (08:08→19:51)
[2021-09-07 08:19] LABS: BASO % 0.5 % (0.0-1.0); EOS # 0.1 10^3/uL (0.0-0.5); EOS % 1.2 % (0.0-3.0); HEMATOCRIT 39.8 % (36.0-47.0); HEMOGLOBIN 12.7 g/dl (12.0-15.5); LYMPH # 0.8 10^3/uL (1.5-5.0); LYMPH % 11.6 % (24.0-44.0); MEAN CORPUSCULAR HEMOGLOBIN 30.1 pg (27.0-33.0); MEAN CORPUSCULAR HGB CONC 31.9 g/dl (32.0-36.5); MEAN CORPUSCULAR VOLUME 94.3 fl (80.0-96.0); MONO # 0.6 10^3/uL (0.0-0.8); MONO % 9.3 % (2.0-8.0); NEUTROPHILS # 5.1 10^3/uL (1.5-8.5); NEUTROPHILS % 77.1 % (36.0-66.0); PLATELET COUNT, AUTOMATED 204 10^3/uL (150-450); RED BLOOD COUNT 4.22 10^6/uL (4.00-5.40); WHITE BLOOD COUNT 6.7 10^3/uL (4.0-10.0)
[2021-09-07 08:59] VITALS: BP 102/66
[2021-09-07 08:59] LABS: ALBUMIN 3.2 GM/DL (3.2-5.2); BILIRUBIN,TOTAL 0.6 MG/DL (0.2-1.0); CALCIUM LEVEL 10.3 MG/DL (8.8-10.2); CREATININE FOR GFR 0.95 MG/DL (0.55-1.30); MAGNESIUM LEVEL 1.8 MG/DL (1.8-2.4); TOTAL PROTEIN 6.6 GM/DL (6.4-8.2)
[2021-09-07] MEDS: LOSARTAN 50MG TABLET PO SCH (09:00)
[2021-09-07] MEDS: FUROSEMIDE 40MG/4ML VIAL (J1940) IV SCH ×4 (09:07→16:09)
[2021-09-07] MEDS: HEPARIN SOD (PORCINE) 5000UNITS/ML 1ML VIAL/SYRINGE SC SCH ×2 (09:28→21:43)
[2021-09-07] MEDS: ASPIRIN 81MG ENTERIC TABLET PO SCH (09:28)
[2021-09-07] MEDS: LOPERAMIDE 2 MG CAPLET PO SCH ×2 (10:49→21:43)
[2021-09-07] MEDS ORDERED: LOMOTIL 2.5MG/0.025MG TABLET PO PRN (11:50)
[2021-09-07] MEDS: PSYLLIUM PO SCH ×2 (13:36→21:43)
[2021-09-07 14:00] VITALS: BP 127/91
[2021-09-07] MEDS: bisoproloL fumarate 5 MG TAB PO SCH (21:00)
[2021-09-07 21:30] VITALS: BP 94/59
[2021-09-07] MEDS: MIRTAZAPINE 7.5MG PER 1/2 TABLET PO SCH (21:43)
[2021-09-07] MEDS: SERTRALINE 100 MG TAB PO SCH (21:44)
[2021-09-07] MEDS: MONTELUKAST 10 MG TAB PO SCH (21:44)
[2021-09-08] MEDS: FUROSEMIDE 40MG/4ML VIAL (J1940) IV SCH ×3 (00:09→16:00)
[2021-09-08 06:00] VITALS: BP 123/71
[2021-09-08] MEDS: SYMBICORT 160/4.5MCG INHALER 6GM INH SCH ×2 (06:14→19:45)
[2021-09-08 08:01] LABS: BASO % 0.3 % (0.0-1.0); EOS # 0.1 10^3/uL (0.0-0.5); EOS % 1.4 % (0.0-3.0); HEMATOCRIT 38.9 % (36.0-47.0); HEMOGLOBIN 12.8 g/dl (12.0-15.5); LYMPH # 0.8 10^3/uL (1.5-5.0); LYMPH % 12.7 % (24.0-44.0); MEAN CORPUSCULAR HEMOGLOBIN 30.3 pg (27.0-33.0); MEAN CORPUSCULAR HGB CONC 32.9 g/dl (32.0-36.5); MEAN CORPUSCULAR VOLUME 92.2 fl (80.0-96.0); MONO # 0.7 10^3/uL (0.0-0.8); MONO % 10.1 % (2.0-8.0); NEUTROPHILS # 4.8 10^3/uL (1.5-8.5); PLATELET COUNT, AUTOMATED 202 10^3/uL (150-450); RED BLOOD COUNT 4.22 10^6/uL (4.00-5.40); WHITE BLOOD COUNT 6.4 10^3/uL (4.0-10.0)
[2021-09-08 08:29] LABS: ALBUMIN 3.2 GM/DL (3.2-5.2); BILIRUBIN,TOTAL 0.5 MG/DL (0.2-1.0); CALCIUM LEVEL 10.2 MG/DL (8.8-10.2); GLOMERULAR FILTRATION RATE 55.6 (>32); MAGNESIUM LEVEL 1.7 MG/DL (1.8-2.4); POTASSIUM SERUM 3.3 MEQ/L (3.5-5.1); TOTAL PROTEIN 6.9 GM/DL (6.4-8.2)
[2021-09-08] MEDS: LOSARTAN 25 MG TAB PO SCH (09:00)
[2021-09-08] MEDS: HEPARIN SOD (PORCINE) 5000UNITS/ML 1ML VIAL/SYRINGE SC SCH ×2 (09:05→20:48)
[2021-09-08] MEDS: LOPERAMIDE 2 MG CAPLET PO SCH ×2 (09:06→20:47)
[2021-09-08] MEDS: ASPIRIN 81MG ENTERIC TABLET PO SCH (09:06)
[2021-09-08] MEDS: PSYLLIUM PO SCH ×2 (09:06→20:48)
[2021-09-08 14:00] VITALS: BP 100/69
[2021-09-08] MEDS: bisoproloL fumarate 5 MG TAB PO SCH (20:40)
[2021-09-08] MEDS: SERTRALINE 100 MG TAB PO SCH (20:47)
[2021-09-08] MEDS: MONTELUKAST 10 MG TAB PO SCH (20:47)
[2021-09-08] MEDS: MIRTAZAPINE 7.5MG PER 1/2 TABLET PO SCH (20:47)
[2021-09-08] MEDS: ACETAMINOPHEN TAB 650MG DOSE (2X325MG) PO PRN (20:47)
[2021-09-08 22:00] VITALS: BP 95/68
[2021-09-09] VITALS: BP 118/65
[2021-09-09] MEDS: FUROSEMIDE 40MG/4ML VIAL (J1940) IV SCH ×2 (00:13→08:00)
[2021-09-09 06:00] VITALS: BP 117/66
[2021-09-09 06:38] LABS: BASO % 0.2 % (0.0-1.0); EOS # 0.1 10^3/uL (0.0-0.5); EOS % 2.4 % (0.0-3.0); HEMATOCRIT 37.1 % (36.0-47.0); HEMOGLOBIN 12.2 g/dl (12.0-15.5); LYMPH # 0.8 10^3/uL (1.5-5.0); LYMPH % 14.5 % (24.0-44.0); MEAN CORPUSCULAR HEMOGLOBIN 30.5 pg (27.0-33.0); MEAN CORPUSCULAR HGB CONC 32.9 g/dl (32.0-36.5); MEAN CORPUSCULAR VOLUME 92.8 fl (80.0-96.0); MONO # 0.5 10^3/uL (0.0-0.8); MONO % 9.4 % (2.0-8.0); NEUTROPHILS % 73.1 % (36.0-66.0); PLATELET COUNT, AUTOMATED 193 10^3/uL (150-450); WHITE BLOOD COUNT 5.5 10^3/uL (4.0-10.0)
[2021-09-09 07:07] LABS: ALBUMIN 3.1 GM/DL (3.2-5.2); ALT/SGPT 21 U/L (12-78); BILIRUBIN,TOTAL 0.5 MG/DL (0.2-1.0); BLOOD UREA NITROGEN 36 MG/DL (7-18); CARBON DIOXIDE LEVEL 26 MEQ/L (21-32); CHLORIDE LEVEL 101 MEQ/L (98-107); CREATININE FOR GFR 0.82 MG/DL (0.55-1.30); GLOMERULAR FILTRATION RATE > 60.0 (>32); GLUCOSE, FASTING 106 MG/DL (70-100); MAGNESIUM LEVEL 1.8 MG/DL (1.8-2.4); POTASSIUM SERUM 3.6 MEQ/L (3.5-5.1); SODIUM LEVEL 135 MEQ/L (136-145); TOTAL PROTEIN 6.3 GM/DL (6.4-8.2)
[2021-09-09] MEDS: SYMBICORT 160/4.5MCG INHALER 6GM INH SCH ×2 (07:51→19:52)
[2021-09-09 08:00] VITALS: BP 96/54
[2021-09-09] MEDS: LOSARTAN 25 MG TAB PO SCH (08:40)
[2021-09-09] MEDS: ASPIRIN 81MG ENTERIC TABLET PO SCH (08:43)
[2021-09-09] MEDS: HEPARIN SOD (PORCINE) 5000UNITS/ML 1ML VIAL/SYRINGE SC SCH ×2 (08:43→19:58)
[2021-09-09] MEDS: LOPERAMIDE 2 MG CAPLET PO SCH ×2 (08:43→19:59)
[2021-09-09] MEDS: PSYLLIUM PO SCH ×2 (08:44→19:58)
[2021-09-09] MEDS ORDERED: COZA1TAB PO (10:16)
[2021-09-09] MEDS ORDERED: TORS10TA3 PO (10:17)
[2021-09-09] MEDS ORDERED: NITR100C2 PO (10:19)
[2021-09-09 14:00] VITALS: BP 120/91
[2021-09-09] MEDS: MIRTAZAPINE 7.5MG PER 1/2 TABLET PO SCH (19:59)
[2021-09-09] MEDS: bisoproloL fumarate 5 MG TAB PO SCH (19:59)
[2021-09-09] MEDS: SERTRALINE 100 MG TAB PO SCH (19:59)
[2021-09-09] MEDS: MONTELUKAST 10 MG TAB PO SCH (19:59)
[2021-09-09 22:00] VITALS: BP 122/92
[2021-09-10] VITALS (7 sets, daily range): BP systolic 92–108; BP diastolic 56–86
[2021-09-10 06:25] LABS: BASO % 0.4 % (0.0-1.0); EOS # 0.1 10^3/uL (0.0-0.5); EOS % 1.7 % (0.0-3.0); HEMATOCRIT 36.8 % (36.0-47.0); HEMOGLOBIN 11.9 g/dl (12.0-15.5); LYMPH # 0.7 10^3/uL (1.5-5.0); LYMPH % 12.5 % (24.0-44.0); MEAN CORPUSCULAR HGB CONC 32.3 g/dl (32.0-36.5); MEAN CORPUSCULAR VOLUME 92.7 fl (80.0-96.0); MONO # 0.5 10^3/uL (0.0-0.8); MONO % 9.1 % (2.0-8.0); NEUTROPHILS % 75.9 % (36.0-66.0); PLATELET COUNT, AUTOMATED 204 10^3/uL (150-450); RED BLOOD COUNT 3.97 10^6/uL (4.00-5.40); WHITE BLOOD COUNT 5.3 10^3/uL (4.0-10.0)
[2021-09-10 06:53] LABS: ALBUMIN 3.1 GM/DL (3.2-5.2); ALT/SGPT 18 U/L (12-78); BILIRUBIN,TOTAL 0.5 MG/DL (0.2-1.0); BLOOD UREA NITROGEN 33 MG/DL (7-18); CARBON DIOXIDE LEVEL 29 MEQ/L (21-32); CHLORIDE LEVEL 103 MEQ/L (98-107); CREATININE FOR GFR 0.84 MG/DL (0.55-1.30); GLOMERULAR FILTRATION RATE > 60.0 (>32); GLUCOSE, FASTING 101 MG/DL (70-100); MAGNESIUM LEVEL 1.9 MG/DL (1.8-2.4); POTASSIUM SERUM 3.5 MEQ/L (3.5-5.1); SODIUM LEVEL 139 MEQ/L (136-145); TOTAL PROTEIN 6.3 GM/DL (6.4-8.2)
[2021-09-10] MEDS: SYMBICORT 160/4.5MCG INHALER 6GM INH SCH ×2 (07:53→18:13)
[2021-09-10] MEDS ORDERED: TORSEMIDE 10 MG TABLET PO SCH (09:00)
[2021-09-10] MEDS: ASPIRIN 81MG ENTERIC TABLET PO SCH (09:22)
[2021-09-10] MEDS: LOPERAMIDE 2 MG CAPLET PO SCH ×2 (09:22→22:01)
[2021-09-10] MEDS: HEPARIN SOD (PORCINE) 5000UNITS/ML 1ML VIAL/SYRINGE SC SCH ×2 (09:22→22:02)
[2021-09-10] MEDS: PSYLLIUM PO SCH ×2 (09:23→21:59)
[2021-09-10] MEDS ORDERED: NS 500 ML IV ONE ×2 (09:25→14:40)
[2021-09-10] MEDS: bisoproloL fumarate 5 MG TAB PO SCH (21:00)
[2021-09-10] MEDS: SERTRALINE 100 MG TAB PO SCH (22:00)
[2021-09-10] MEDS: MIRTAZAPINE 7.5MG PER 1/2 TABLET PO SCH (22:01)
[2021-09-10] MEDS: MONTELUKAST 10 MG TAB PO SCH (22:01)
[2021-09-10] MEDS: ACETAMINOPHEN TAB 650MG DOSE (2X325MG) PO PRN (22:05)
[2021-09-11 06:00] VITALS: BP 105/58
[2021-09-11 06:52] LABS: BASO % 0.5 % (0.0-1.0); EOS # 0.2 10^3/uL (0.0-0.5); EOS % 3.5 % (0.0-3.0); HEMATOCRIT 33.8 % (36.0-47.0); LYMPH # 0.8 10^3/uL (1.5-5.0); LYMPH % 18.1 % (24.0-44.0); MEAN CORPUSCULAR HEMOGLOBIN 30.1 pg (27.0-33.0); MEAN CORPUSCULAR HGB CONC 32.5 g/dl (32.0-36.5); MEAN CORPUSCULAR VOLUME 92.6 fl (80.0-96.0); MONO # 0.5 10^3/uL (0.0-0.8); MONO % 12.7 % (2.0-8.0); NEUTROPHILS # 2.8 10^3/uL (1.5-8.5); NEUTROPHILS % 64.7 % (36.0-66.0); PLATELET COUNT, AUTOMATED 188 10^3/uL (150-450); RED BLOOD COUNT 3.65 10^6/uL (4.00-5.40); WHITE BLOOD COUNT 4.3 10^3/uL (4.0-10.0)
[2021-09-11 07:18] LABS: ALBUMIN 2.9 GM/DL (3.2-5.2); ALT/SGPT 15 U/L (12-78); BILIRUBIN,TOTAL 0.6 MG/DL (0.2-1.0); BLOOD UREA NITROGEN 28 MG/DL (7-18); CALCIUM LEVEL 9.9 MG/DL (8.8-10.2); CARBON DIOXIDE LEVEL 27 MEQ/L (21-32); CHLORIDE LEVEL 107 MEQ/L (98-107); CREATININE FOR GFR 0.74 MG/DL (0.55-1.30); GLOMERULAR FILTRATION RATE > 60.0 (>32); GLUCOSE, FASTING 99 MG/DL (70-100); POTASSIUM SERUM 3.6 MEQ/L (3.5-5.1); SODIUM LEVEL 140 MEQ/L (136-145); TOTAL PROTEIN 5.9 GM/DL (6.4-8.2)
[2021-09-11] MEDS: LOPERAMIDE 2 MG CAPLET PO SCH (07:54)
[2021-09-11] MEDS: HEPARIN SOD (PORCINE) 5000UNITS/ML 1ML VIAL/SYRINGE SC SCH (07:54)
[2021-09-11] MEDS: ASPIRIN 81MG ENTERIC TABLET PO SCH (07:54)
[2021-09-11] MEDS: PSYLLIUM PO SCH (07:55)
[2021-09-11] MEDS: SYMBICORT 160/4.5MCG INHALER 6GM INH SCH (08:35)
[2021-09-11] MEDS ORDERED: TORS5TAB2 PO (10:53)
[2021-09-11 14:00] VITALS: BP 132/71
== END 2021-09-11 17:20 | disposition home health service (06) | DRG 291 ==
LOC: M ED 13:47 → EDBD 13:47 → M ED INP 16:40 → ENRESERV 09-06 15:56 → M MSPAV 09-06 17:30
PROVIDERS: ADMIT Internal Medicine; ATTEND Internal Medicine
DX: I11.0 Hypertensive heart disease with heart failure (principal); I50.33 Acute on chronic diastolic (congestive) heart failure; F32.A Depression, unspecified; J45.909 Unspecified asthma, uncomplicated; R53.1 Weakness; Z20.822 Contact with and (suspected) exposure to COVID-19; Z79.82 Long term (current) use of aspirin; Z79.899 Other long term (current) drug therapy; K21.9 Gastro-esophageal reflux disease without esophagitis; Z90.79 Acquired absence of other genital organ(s); Z90.49 Acquired absence of other specified parts of digestive tract; Z98.49 Cataract extraction status, unspecified eye

== ENCOUNTER → 2021-10-16 | Outpatient (REF) | payer MEDICARE, OTHER ==
[~2021-10-16] MED LIST changes: +CALC-211 PO; +COZA1TAB PO; +D200CAP PO; +LEVAINH INH; +LOPE2TAB12 PO; +META28PO PO; +MIRT1TAB PO; +NITR100C2 PO; +TORS10TA3 PO; +TORS5TAB2 PO; +ZOLO100T PO
[2021-10-16 13:14] LABS: BLOOD UREA NITROGEN 26 MG/DL (7-18); CARBON DIOXIDE LEVEL 27 MEQ/L (21-32); CHLORIDE LEVEL 109 MEQ/L (98-107); CREATININE FOR GFR 0.79 MG/DL (0.55-1.30); GLOMERULAR FILTRATION RATE > 60.0 (>32); GLUCOSE, FASTING 115 MG/DL (70-100); POTASSIUM SERUM 4.1 MEQ/L (3.5-5.1); SODIUM LEVEL 142 MEQ/L (136-145)
== END ==
LOC: M SHH 12:27
PROVIDERS: ATTEND Internal Medicine
DX: N18.31 Chronic kidney disease, stage 3a (principal)

== ENCOUNTER 2021-11-01 15:55 | Emergency (ER) | payer MEDICARE, OTHER ==
[~2021-11-01] VITALS: Ht 162.6 cm; Wt 70.5 kg
[2021-11-01 16:44] LABS: VENOUS BASE EXCESS 0.3 (-2.0-2.0); VENOUS HCO3 26.1 MEQ/L (23.0-27.0); VENOUS O2 SATURATION 65.4 % (60.0-80.0); VENOUS PARTIAL PRESSURE CO2 46.8 mmHg (38.0-50.0); VENOUS PH 7.365 UNITS (7.330-7.430); VENOUS TOTAL CO2 27.6 MEQ/L (24.0-28.0)
[2021-11-01 16:55] LABS: BASO % 0.5 % (0.0-1.0); EOS % 0.5 % (0.0-3.0); HEMATOCRIT 39.3 % (36.0-47.0); HEMOGLOBIN 13.2 g/dl (12.0-15.5); LYMPH # 0.6 10^3/uL (1.5-5.0); MEAN CORPUSCULAR HEMOGLOBIN 30.7 pg (27.0-33.0); MEAN CORPUSCULAR HGB CONC 33.6 g/dl (32.0-36.5); MEAN CORPUSCULAR VOLUME 91.4 fl (80.0-96.0); MONO # 0.6 10^3/uL (0.0-0.8); MONO % 8.7 % (2.0-8.0); NEUTROPHILS # 5.3 10^3/uL (1.5-8.5); NEUTROPHILS % 80.7 % (36.0-66.0); PLATELET COUNT, AUTOMATED 193 10^3/uL (150-450); WHITE BLOOD COUNT 6.6 10^3/uL (4.0-10.0)
[2021-11-01 17:16] LABS: ALBUMIN 3.7 GM/DL (3.2-5.2); ALT/SGPT 26 U/L (12-78); BILIRUBIN,DIRECT 0.1 MG/DL (0.0-0.2); BILIRUBIN,TOTAL 0.4 MG/DL (0.2-1.0); BLOOD UREA NITROGEN 14 MG/DL (7-18); CALCIUM LEVEL 10.4 MG/DL (8.8-10.2); CARBON DIOXIDE LEVEL 27 MEQ/L (21-32); CHLORIDE LEVEL 108 MEQ/L (98-107); CREATININE FOR GFR 0.73 MG/DL (0.55-1.30); GLOMERULAR FILTRATION RATE > 60.0 (>32); GLUCOSE, FASTING 118 MG/DL (70-100); POTASSIUM SERUM 3.7 MEQ/L (3.5-5.1); SODIUM LEVEL 141 MEQ/L (136-145)
[2021-11-01 18:56] VITALS: BP 152/83
== END 2021-11-01 18:58 | disposition home or self-care (01) ==
LOC: EDBD 15:55 → M ED 15:55
DX: R53.1 Weakness (principal); K44.9 Diaphragmatic hernia without obstruction or gangrene; I50.30 Unspecified diastolic (congestive) heart failure; I10 Essential (primary) hypertension; J45.909 Unspecified asthma, uncomplicated; E83.52 Hypercalcemia; R42 Dizziness and giddiness; Z79.82 Long term (current) use of aspirin; Z79.899 Other long term (current) drug therapy

== ENCOUNTER → 2022-02-16 | Outpatient (CLI) | payer MEDICARE, OTHER ==
[2022-02-16 12:33] LABS: BLOOD UREA NITROGEN 14 MG/DL (7-18); CALCIUM LEVEL 9.7 MG/DL (8.8-10.2); CARBON DIOXIDE LEVEL 28 MEQ/L (21-32); CHLORIDE LEVEL 107 MEQ/L (98-107); CREATININE FOR GFR 0.82 MG/DL (0.55-1.30); GLOMERULAR FILTRATION RATE > 60.0 (>32); GLUCOSE, FASTING 90 MG/DL (70-100); MAGNESIUM LEVEL 1.9 MG/DL (1.8-2.4); NT-PRO BNP 1006 PG/ML (<450); POTASSIUM SERUM 3.9 MEQ/L (3.5-5.1); SODIUM LEVEL 139 MEQ/L (136-145)
== END ==
LOC: M LAB 10:51
PROVIDERS: ATTEND Physician Assistant
DX: I50.32 Chronic diastolic (congestive) heart failure (principal)